=== PATIENT | male | born 1990 | race Caucasian/White ===

== ENCOUNTER 2018-09-20 10:34 | Emergency (ER) | payer MEDICAID ==
[~2018-09-20] VITALS: Ht 185.4 cm; Wt 66.4 kg
[2018-09-20 12:56] VITALS: BP 128/92
== END 2018-09-20 13:11 | disposition home or self-care (01) ==
LOC: ER 10:35
DX: M54.2 Cervicalgia (principal); R07.81 Pleurodynia; M54.89 Other dorsalgia; V43.52XA Car driver injured in collision with other type car in traffic accident, initial encounter; Y93.89 Activity, other specified; Y92.488 Other paved roadways as the place of occurrence of the external cause; Y99.8 Other external cause status
CPT/HCPCS: 71045; 99283